=== PATIENT | male | born 1970 ===

== ENCOUNTER 2017-07-23 10:06 | Emergency (ER) | payer OTHER ==
[2017-07-23 10:20] VITALS: BP 133/83; PULSE 63; RESP 18; TEMP 98; O2SAT 98
--- NOTE | 2017-07-23 11:18 | C.PDOC ---
History Of Present Illness 47yo male, presents to ED complaining of inguinal abdominal pain, greater on right than left, worsening over the past 2 months. 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 He denies noticing any protruding masses, and denies any history of hernias. No other complaints. Time Seen by Provider: 07/23/17 11:07 Chief Complaint (Nursing): Male Genitourinary History Per: Patient History/Exam Limitations: no limitations Onset/Duration Of Symptoms: Persistent Current Symptoms Are (Timing): Still Present Additional History Per: Patient Past Medical History Reviewed: Historical Data, Nursing Documentation, Vital Signs Vital Signs: Last Vital Signs Temp 98.0 F 07/23/17 10:16 Pulse 63 07/23/17 10:16 Resp 18 07/23/17 10:16 BP 133/83 07/23/17 10:16 Pulse Ox 98 07/23/17 11:18 - Medical History PMH: Diverticulitis Surgical History: Denies: Hernia Repair Family History: States: No Known Family Hx - Social History Hx Alcohol Use: Yes Hx Substance Use: No - Immunization History Hx Tetanus Toxoid Vaccination: Yes Hx Influenza Vaccination: No Hx Pneumococcal Vaccination: No Review Of Systems Except As Marked, All Systems Reviewed And Found Negative. Constitutional: Negative for: Fever, Chills Gastrointestinal: Positive for: Abdominal Pain (inguinal abdominal pain). Negative for: Nausea, Vomiting, Diarrhea Physical Exam - Physical Exam Appears: Non-toxic, No Acute Distress Skin: Normal Color, Warm, Dry Head: Atraumatic, Normacephalic Eye(s): bilateral: Normal Inspection Nose: Normal Oral Mucosa: Moist Neck: Normal ROM, Supple Chest: Symmetrical Cardiovascular: Rhythm Regular Respiratory: Normal Breath Sounds Gastrointestinal/Abdominal: Soft, No Tenderness Male Genital: No Testicular Tenderness, No Testicular Swelling, No Scrotal Swelling, Other (left greater than right scant inguinal hernia, spontaneously reduced) Extremity: Normal ROM Neurological/Psych: Oriented x3 ED Course And Treatment O2 Sat by Pulse Oximetry: 98 (RA) Pulse Ox Interpretation: Normal Medical Decision Making Medical Decision Making: small L>R inguinal hernia- probably exacerbated by manual labor as a day logging rafter laborer no testicular involvement no RICK ice and nsaids given and educated opt f/u outlined. Disposition Doctor Will See Patient In The: Office Counseled Patient/Family Regarding: Studies Performed, Diagnosis - Disposition Referrals: [facility] [Outside] [facility] [Outside] Anjel Portillo MD [Staff Provider] - Disposition: HOME/ ROUTINE Disposition Time: 11:18 Condition: GOOD Additional Instructions: sigue bolsa de hielo 1/2 hora por hora, nada caliente Ibuprofeno 400-600 mg cada 6 horas lula necessario Sigue en la clinica familiar [place] y referencia a evelyn Dr. Saldivar- [facility]- para siguir hadley cuidados de estas hernias inguinales (pequenos) Instructions: Inguinal and Femoral (Groin) Hernias Forms: [employer] (Cuban) Print Language: TRISTANIAN - Clinical Impression Clinical Impression: Inguinal hernia - Scribe Statement The provider has reviewed the documentation as recorded by the Scribe (Shasta Rodriguez) Provider Attestation: All medical record entries made by the Scribe were at my direction and personally dictated by me. I have reviewed the chart and agree that the record accurately reflects my personal performance of the history, physical exam, medical decision making, and the department course for this patient. I have also personally directed, reviewed, and agree with the discharge instructions and disposition.
== END 2017-07-23 12:06 | disposition home or self-care (01) ==
LOC: C.ER 10:06
DX: K40.90 Unilateral inguinal hernia, without obstruction or gangrene, not specified as recurrent (principal)

== ENCOUNTER 2018-01-14 14:23 | Emergency (ER) | payer OTHER ==
[2018-01-14] MEDS ORDERED: Sodium Chloride 0.9% 1,000 ML IV STA (15:19)
--- NOTE | 2018-01-14 15:21 | C.PDOC ---
History Of Present Illness 47 years old male with no PMHx presents to ED for complaints of left lower abdominal pain associated with mild dysuria that began months ago. Patient describes pain as sharp, intermittent, left worse than right, and radiates to left flank. Denies fever, vomiting, or bleeding. Patient also reports symptoms are similar to previous episodes of diverticulitis. Time Seen by Provider: 01/14/18 14:50 Chief Complaint (Nursing): Abdominal Pain History Per: Patient History/Exam Limitations: no limitations Onset/Duration Of Symptoms: Days, Intermittent Episodes Current Symptoms Are (Timing): Still Present Location Of Pain/Discomfort: LLQ Quality Of Discomfort: Sharp Associated Symptoms: Urinary Symptoms Exacerbating Factors: None Alleviating Factors: None Last Bowel Movement: Today Recent travel outside of the [place]: No Past Medical History Reviewed: Historical Data, Nursing Documentation, Vital Signs Vital Signs: Last Vital Signs Temp 98.5 F 01/14/18 18:23 Pulse 67 01/14/18 18:23 Resp 20 01/14/18 18:23 BP 138/85 01/14/18 18:23 Pulse Ox 99 01/14/18 18:23 - Medical History PMH: Diverticulitis Family History: States: No Known Family Hx - Social History Hx Alcohol Use: Yes Hx Substance Use: No - Immunization History Hx Tetanus Toxoid Vaccination: Yes Hx Influenza Vaccination: No Hx Pneumococcal Vaccination: No Review Of Systems Except As Marked, All Systems Reviewed And Found Negative. Constitutional: Negative for: Fever Gastrointestinal: Negative for: Vomiting Physical Exam - Physical Exam Additional Physical Exam Comments: Constitutional: No acute distress. Head: Normocephalic. Atraumatic. Eyes: PERRL. ENT: Moist mucous membranes. Neck: Supple. Cardiovascular: Regular rate. Radial pulse 2+ bilaterally. Chest: No tenderness. Respiratory: Clear to auscultation bilaterally. GI: LLQ tenderness with guarding Back: No CVA tenderness. Musculoskeletal: No tenderness or swelling of extremities. Skin: No rash. Neurologic: Alert, no focal deficit. ED Course And Treatment - Laboratory Results Result Diagrams: 01/14/18 15:40 01/14/18 15:40 O2 Sat by Pulse Oximetry: 100 (RA) Pulse Ox Interpretation: Normal Medical Decision Making Medical Decision Making: Administered Morphine, IV fluids, or Zofran. Ordered blood work, urine culture, urinalysis, and CT abdomen& pelvis. Abdomen&Pelvis CT: Diffuse colonic diverticulosis with mild pericolonic stranding adjacent to a proximal ascending colonic diverticulum. Findings may represent early uncomplicated diverticulitis in the appropriate clinical setting. Clinical correlation is recommended. Normal appendix. Patient has antibiotics that he just started taking 1 week ago for this pain for which he saw his PMD. Continue antibiotics. Return to ED for worsening fever , vomiting, or pain. Disposition - Disposition Disposition: HOME/ ROUTINE Disposition Time: 17:48 Condition: STABLE Prescriptions: Docusate [Colace] 100 mg PO BID #30 cap Instructions: Diverticulitis Forms: [employer] (Bolivian) - Clinical Impression Clinical Impression: Diverticulitis - Scribe Statement The provider has reviewed the documentation as recorded by the Mere Seay All medical record entries made by the Mirelaibhema were at my direction and personally dictated by me. I have reviewed the chart and agree that the record accurately reflects my personal performance of the history, physical exam, medical decision making, and the department course for this patient. I have also personally directed, reviewed, and agree with the discharge instructions and disposition.
[2018-01-14] MEDS ORDERED: Sodium Chloride 0.9% 1,000 ML ONE (15:27)
[2018-01-14] MEDS ORDERED: Morphine 4 MG/ML VIAL ONE (15:27)
[2018-01-14 15:44] LABS: BASO % 0.5 % (0.0-2.0); EOS # 0.1 K/uL (0.0-0.7); EOS % 2.2 % (0.0-4.0); HEMOGLOBIN 15.4 g/dL (12.0-18.0); LYMPH # 1.8 K/uL (1.0-4.3); LYMPH % 26.4 % (20.0-40.0); MEAN CELL VOLUME 86.4 fL (80.0-94.0); MEAN CORPUSCULAR HEMOGLOBIN 30.2 pg (27.0-31.0); MEAN PLATELET VOLUME 8.6 fL (7.2-11.7); MONO # 0.4 K/uL (0.0-0.8); MONO % 5.2 % (0.0-10.0); NEUT # 4.5 K/uL (1.8-7.0); NEUT % 65.7 % (50.0-75.0); NRBC % 0.1 % (0.0-2.0); RBC 5.1 Mil/uL (4.40-5.90); RED CELL DISTRIBUTION WIDTH 13.1 % (11.5-14.5); WHITE BLOOD COUNT 6.8 K/uL (4.8-10.8)
[2018-01-14 15:46] LABS: URINE BILIRUBIN NEGATIVE (NEGATIVE); URINE BLOOD NEGATIVE (NEGATIVE); URINE CLARITY Clear (Clear); URINE COLOR Yellow (YELLOW); URINE GLUCOSE (UA) NORMAL (Normal); URINE PROTEIN NEGATIVE (NEGATIVE); URINE UROBILINOGEN NORMAL mg/dL (0.2-1.0)
[2018-01-14 15:54] LABS: URINE LEUKOCYTE ESTERASE NEGATIVE Leu/uL (Negative)
[2018-01-14 15:55] LABS: ALB/GLOB RATIO 1.6 (1.0-2.1); ALBUMIN 4.4 g/dL (3.5-5.0); ALT/SGPT 34 U/L (21-72); AST/SGOT 21 U/L (17-59); BLOOD UREA NITROGEN 15 mg/dL (9-20); CALCIUM 9.1 mg/dl (8.6-10.4); GFR NON-AFRICAN AMERICAN > 60; LIPASE 88 U/L (23-300)
[2018-01-14] MEDS ORDERED: Iodixanol 320 MG/ML 100 ML BOTTLE IV ONE (16:34)
--- NOTE | 2018-01-14 17:41 | CT ---
Date of service: 01/14/2018 PROCEDURE: CT Abdomen and Pelvis with contrast HISTORY: abd pain, LLQ/RLQ COMPARISON: None. TECHNIQUE: Contrast dose: 100 mL Visipaque 320 Radiation dose: Total exam DLP = 392.0 mGy-cm. This CT exam was performed using one or more of the following dose reduction techniques: Automated exposure control, adjustment of the mA and/or kV according to patient size, and/or use of iterative reconstruction technique. FINDINGS: LOWER THORAX: Unremarkable. LIVER: Mild hepatic steatosis. No gross lesion or ductal dilatation. GALLBLADDER AND BILE DUCTS: Unremarkable. PANCREAS: Unremarkable. No gross lesion or ductal dilatation. SPLEEN: Unremarkable. ADRENALS: Unremarkable. No mass. KIDNEYS AND URETERS: Unremarkable. No hydronephrosis. No solid mass. VASCULATURE: Unremarkable. No aortic aneurysm. BOWEL: Diffuse colonic diverticulosis. Mild pericolonic stranding adjacent to the proximal ascending colonic diverticulum. No obstruction. No gross mural thickening. APPENDIX: Normal appendix. PERITONEUM: Small right larger than left fat containing inguinal hernias. No free fluid. No free air. LYMPH NODES: Unremarkable. No enlarged lymph nodes. BLADDER: Unremarkable. REPRODUCTIVE: Unremarkable. BONES: No acute fracture. OTHER FINDINGS: None. IMPRESSION: Diffuse colonic diverticulosis with mild pericolonic stranding adjacent to a proximal ascending colonic diverticulum. Findings may represent early uncomplicated diverticulitis in the appropriate clinical setting. Clinical correlation is recommended. Normal appendix.
[2018-01-14 18:24] VITALS: BP 138/85; PULSE 67; RESP 20; TEMP 98.5
[2018-01-14 18:59] VITALS: O2SAT 100
== END 2018-01-14 18:23 | disposition home or self-care (01) ==
LOC: C.ER 14:23
DX: K57.32 Diverticulitis of large intestine without perforation or abscess without bleeding (principal)
CPT/HCPCS: 74177; 80053; 81001; 83690; 85025; 87086; 96361; 96374; 96375; 99284; J2270; J2405; J7030; Q9967

== ENCOUNTER 2018-06-03 13:36 | Emergency (ER) | payer OTHER ==
[2018-06-03 14:02] VITALS: RESP 16; O2SAT 98
--- NOTE | 2018-06-03 15:24 | C.PDOC ---
History Of Present Illness 48 y/o male pt presents to the ER c/o abdominal burning pain that radiates to the lower back for more than x1 month. Associated sx includes constipation. Pt's pain has progressively gotten worse. He denies fever, chills, vomiting, SOB and chest pain. Time Seen by Provider: 06/03/18 14:03 Chief Complaint (Nursing): Abdominal Pain History Per: Patient History/Exam Limitations: no limitations Onset/Duration Of Symptoms: Days (more than x1 month ) Current Symptoms Are (Timing): Still Present Location Of Pain/Discomfort: RUQ Quality Of Discomfort: Burning Past Medical History Reviewed: Historical Data, Nursing Documentation, Vital Signs Vital Signs: Last Vital Signs Temp 99.5 F 06/03/18 13:57 Pulse 66 06/03/18 13:57 Resp 16 06/03/18 13:57 BP 131/86 06/03/18 13:57 Pulse Ox 98 06/03/18 13:57 - Medical History PMH: Diverticulitis Family History: States: No Known Family Hx - Social History Hx Alcohol Use: Yes Hx Substance Use: No - Immunization History Hx Tetanus Toxoid Vaccination: Yes Hx Influenza Vaccination: No Hx Pneumococcal Vaccination: No Review Of Systems Except As Marked, All Systems Reviewed And Found Negative. Constitutional: Negative for: Fever, Chills Cardiovascular: Negative for: Chest Pain Respiratory: Negative for: Shortness of Breath Gastrointestinal: Positive for: Abdominal Pain (burning), Constipation. Negative for: Vomiting Musculoskeletal: Positive for: Back Pain (low; radiated from abdominal pain ) Physical Exam - Physical Exam Appears: Non-toxic, No Acute Distress Skin: Warm, Dry Head: Normacephalic Eye(s): bilateral: Normal Inspection Oral Mucosa: Moist Throat: Normal Chest: Symmetrical Cardiovascular: Rhythm Regular Respiratory: Normal Breath Sounds Gastrointestinal/Abdominal: Soft, Tenderness (RUQ ), No Guarding, No Rebound Back: No CVA Tenderness Neurological/Psych: Oriented x3, Normal Speech ED Course And Treatment - Laboratory Results Result Diagrams: 06/03/18 15:47 06/03/18 15:47 O2 Sat by Pulse Oximetry: 98 (RA) Pulse Ox Interpretation: Normal - CT Scan/US Abdomen US Other Rad Studies (CT/US): Read By Radiologist, Radiology Report Reviewed CT/US Interpretation: Accession No. : [id number]. Patient Name / ID : CURTIS HEALY / [id number]. Exam Date : 06/03/2018 15:49:12 ( Approved ). Study Comment : Sex / Age : M / 48Y. Creator : Willi Prakash MD. Dictator : Willi Prakash MD. Antenna Engineer : Piercing Specialist : Willi Prakash MD. Approver2 : Report Date : 06/03/2018 17:39:46. My Comment : . Date of service: 06/03/2018. HISTORY: Epigastric and RUQ abd pain. COMPARISON: None. TECHNIQUE: Sonographic evaluation of the right upper quadrant of the abdomen. FINDINGS: LIVER: Measures 17.9 cm in length. Normal echogenicity of the liver parenchyma. No mass. No intrahepatic bile duct dilatation. GALLBLADDER: Unremarkable. No gallstones. No sonographic Huang sign reported. COMMON BILE DUCT: Measures 4.0 mm. No stones. No dilatation. PANCREAS: Obscured by overlying bowel gas. RIGHT KIDNEY: Measures 11.8 cm in length. Normal echogenicity. No calculus, mass, or hydronephrosis. AORTA: Poorly evaluated due to overlying bowel gas. IVC: Poorly evaluated due to overlying bowel gas. OTHER FINDINGS: None . IMPRESSION: Pancreas obscured by overlying bowel gas well as abdominal aorta inferior vena cava. Examination otherwise unremarkable. Progress Note: Plans: -- Chem labs. -- blood work. -- CT abd&pelvis. -- Abdomen US. -- CT of abdomen/pelvis. -- Morphine. -- protonix. -- IV fluids. -- Zofran Disposition - Disposition Disposition Time: 19:05 Condition: STABLE Forms: [employer] (Kyrgyz) - Clinical Impression Clinical Impression: Abdominal pain - PA / [employer] TE[employer]ER / Resident Statement / has reviewed & agrees with the documentation as recorded. - Scribe Statement The provider has reviewed the documentation as recorded by the Mirelaibhema Mclain Do All medical record entries made by the Scribe were at my direction and personally dictated by me. I have reviewed the chart and agree that the record accurately reflects my personal performance of the history, physical exam, medical decision making, and the department course for this patient. I have also personally directed, reviewed, and agree with the discharge instructions and disposition. Physician Patient Turnover Patient Signed Over To: Willi Antonio DO Handoff Comments: CT pending
[2018-06-03] MEDS ORDERED: Sodium Chloride 0.9% 1,000 ML IV STA (15:28)
[2018-06-03] MEDS ORDERED: Sodium Chloride 0.9% 1,000 ML ONE (15:41)
[2018-06-03 15:57] LABS: BASO % 0.7 % (0.0-2.0); EOS # 0.2 K/uL (0.0-0.7); HEMOGLOBIN 16.3 g/dL (12.0-18.0); LYMPH % 32.8 % (20.0-40.0); MEAN CELL VOLUME 88.4 fL (80.0-94.0); MEAN CORPUSCULAR HEMOGLOBIN 29.9 pg (27.0-31.0); MEAN CORPUSCULAR HGB CONC 33.9 g/dL (33.0-37.0); MEAN PLATELET VOLUME 8.5 fL (7.2-11.7); MONO # 0.4 K/uL (0.0-0.8); NEUT # 3.5 K/uL (1.8-7.0); NEUT % 56.5 % (50.0-75.0); NRBC % 0.1 % (0.0-2.0); RBC 5.44 Mil/uL (4.40-5.90); RED CELL DISTRIBUTION WIDTH 13.9 % (11.5-14.5); WHITE BLOOD COUNT 6.1 K/uL (4.8-10.8)
[2018-06-03 16:18] LABS: ALB/GLOB RATIO 1.7 (1.0-2.1); ALBUMIN 4.8 g/dL (3.5-5.0); ALT/SGPT 15 U/L (21-72); AST/SGOT 27 U/L (17-59); BLOOD UREA NITROGEN 19 mg/dL (9-20); CALCIUM 9.1 mg/dl (8.6-10.4); GFR NON-AFRICAN AMERICAN > 60; LIPASE 130 U/L (23-300)
[2018-06-03 16:24] LABS: URINE BILIRUBIN NEGATIVE (NEGATIVE); URINE BLOOD NEGATIVE (NEGATIVE); URINE CLARITY Clear (Clear); URINE COLOR Colorless (YELLOW); URINE GLUCOSE (UA) NORMAL (Normal); URINE LEUKOCYTE ESTERASE NEG Leu/uL (Negative); URINE PROTEIN NEGATIVE (NEGATIVE); URINE UROBILINOGEN NORMAL mg/dL (0.2-1.0)
--- NOTE | 2018-06-03 17:43 | US ---
Date of service: 06/03/2018 HISTORY: Epigastric and RUQ abd pain COMPARISON: None. TECHNIQUE: Sonographic evaluation of the right upper quadrant of the abdomen. FINDINGS: LIVER: Measures 17.9 cm in length. Normal echogenicity of the liver parenchyma. No mass. No intrahepatic bile duct dilatation. GALLBLADDER: Unremarkable. No gallstones. No sonographic Huang sign reported. COMMON BILE DUCT: Measures 4.0 mm. No stones. No dilatation. PANCREAS: Obscured by overlying bowel gas. RIGHT KIDNEY: Measures 11.8 cm in length. Normal echogenicity. No calculus, mass, or hydronephrosis. AORTA: Poorly evaluated due to overlying bowel gas. IVC: Poorly evaluated due to overlying bowel gas. OTHER FINDINGS: None . IMPRESSION: Pancreas obscured by overlying bowel gas well as abdominal aorta inferior vena cava. Examination otherwise unremarkable.
[2018-06-03] MEDS ORDERED: Iohexol 240 (50 ml) PO STA (17:47)
[2018-06-03] MEDS ORDERED: Iohexol 240 (50 ml) ONE (18:07)
[2018-06-03] MEDS ORDERED: Iohexol 350mg/ml 100 ML ONE (19:36)
[2018-06-03 21:54] VITALS: BP 114/76; PULSE 78; TEMP 98.3
--- NOTE | 2018-06-04 12:33 | CT ---
Date of service: 06/03/2018 PROCEDURE: CT Abdomen and Pelvis with contrast HISTORY: mid abdominal pain COMPARISON: Abdomen pelvis CT without contrast 01/14/2018. TECHNIQUE: Following oral and intravenous contrast administration, a CT examination of the abdomen and pelvis was performed from the domes of the diaphragms to the symphysis pubis with reformatted datasets provided not only axial but also sagittal and coronal series.Contrast dose: Omnipaque 350, 100 cc Radiation dose: Total exam DLP = 381.79 mGy-cm. This CT exam was performed using one or more of the following dose reduction techniques: Automated exposure control, adjustment of the mA and/or kV according to patient size, and/or use of iterative reconstruction technique. FINDINGS: LOWER THORAX: Unremarkable. LIVER: Unremarkable. No gross lesion or ductal dilatation. GALLBLADDER AND BILE DUCTS: Unremarkable. PANCREAS: Unremarkable. No gross lesion or ductal dilatation. SPLEEN: Unremarkable. ADRENALS: Unremarkable. No mass. KIDNEYS AND URETERS: Unremarkable. No hydronephrosis. No solid mass. VASCULATURE: Unremarkable. No aortic aneurysm. No aortic atherosclerotic calcification or mural plaque present. BOWEL: Scattered colonic diverticular changes seen throughout the colon without acute changes. No obstruction. No gross mural thickening. Mildly prominent fecal loading seen throughout the colon. APPENDIX: Normal appendix. PERITONEUM: Unremarkable. No free fluid. No free air. LYMPH NODES: Unremarkable. No enlarged lymph nodes. BLADDER: Distended but otherwise unremarkable appearing. REPRODUCTIVE: Unremarkable. BONES: No acute fracture. OTHER FINDINGS: None. IMPRESSION: Diffuse colonic diverticulosis without diverticulitis. Mild constipation suspected. No definite acute abdominal or pelvic findings. Preliminary report provided by Martina, 06/03/2018 8:57 p.m..
== END 2018-06-03 21:54 | disposition home or self-care (01) ==
LOC: C.ER 13:36
DX: R10.9 Unspecified abdominal pain (principal)
CPT/HCPCS: 74177; 76705; 80053; 81001; 83690; 85025; 96361; 96374; 96375; 99285; C9113; J2405; J7030; Q9966; Q9967

== ENCOUNTER 2018-07-07 07:05 | Emergency (ER) | payer OTHER | END 2018-07-07 09:01 | disposition home or self-care (01) | LOC: C.ER 07:05 ==